=== PATIENT | male | born 1995 | race Caucasian/White ===

== ENCOUNTER → 2022-09-17 | Outpatient (CLI) | payer OTHER | LOC: COL.RAD 09:14 | DX: M25.552 Pain in left hip (principal) | CPT/HCPCS: J3301; Q9967 ==

== ENCOUNTER → 2022-10-17 | Outpatient (CLI) | payer OTHER | LOC: COL.RAD 09:28 | DX: M25.552 Pain in left hip (principal) ==

== ENCOUNTER → 2023-09-23 | Outpatient (CLI) | payer OTHER ==
[~2023-09-23] MED LIST: Gadoterate 5 ML VIAL IV ONE; Iohexol 300 - 10 ML VIAL IV ONE; Triamcinolone 40 MG/ML 1 ML VIAL IJ ONE
== END ==
LOC: COL.RAD 12:41
DX: M25.552 Pain in left hip (principal)
CPT/HCPCS: A9575; J0665; J3301; Q9967

== ENCOUNTER → 2024-03-04 | Outpatient (CLI) | payer OTHER ==
[~2024-03-04] MED LIST changes: -Triamcinolone 40 MG/ML 1 ML VIAL IJ ONE
== END ==
LOC: COL.RAD 09:29
DX: M25.551 Pain in right hip (principal)
CPT/HCPCS: A9575; Q9967